=== PATIENT | male | born 1950 | race Caucasian/White ===

== ENCOUNTER 2018-07-03 16:56 | Observation (INO) | payer OTHER ==
[2018-07-03 22:05] LABS: ADD MAN DIFF? NO
[2018-07-03 22:09] LABS: BASOPHILS % 0.6 % (0.0-2.0); EOSINOPHILS # 0.2 10^3/ul (0.0-0.5); HEMATOCRIT 37.4 % (42.0-52.0); HEMOGLOBIN 12.3 g/dl (14.0-18.0); LYMPHOCYTES % 20.1 % (15.0-51.0); MEAN CORPUSCULAR HEMOGLOBIN 30.4 pg (29.0-33.0); MEAN CORPUSCULAR HGB CONC 32.9 g/dl (32.0-37.0); MEAN CORPUSCULAR VOLUME 92.3 fl (82.0-101.0); MEAN PLATELET VOLUME 9.6 fl (7.4-10.4); MONOCYTE # 0.4 10^3/ul (0.3-0.9); MONOCYTES % 7.2 % (0.0-11.0); NEUTROPHIL # 3.4 10^3/ul (1.6-7.5); NEUTROPHILS % 67.9 % (39.0-77.0); PLATELET COUNT 179 10^3/UL (140-415); RED BLOOD COUNT 4.05 10^6/ul (4.70-6.10); RED CELL DISTRIBUTION WIDTH 13.6 % (11.5-14.5)
[2018-07-03 22:28] LABS: ALANINE AMINOTRANSFERASE 34 IU/L (13-69); ALBUMIN 3.7 g/dl (3.3-4.9); ALBUMIN/GLOBULIN RATIO 0.88; ALKALINE PHOSPHATASE 93 IU/L (42-121); ANION GAP 10 (5-13); ASPARTATE AMINO TRANSFERASE 42 IU/L (15-46); BILIRUBIN,INDIRECT 0.5 mg/dl (0-1.1); BILIRUBIN,TOTAL 0.5 mg/dl (0.2-1.3); BLOOD UREA NITROGEN 18 mg/dl (7-20); CALCIUM 9.3 mg/dl (8.4-10.2); CARBON DIOXIDE 28 mmol/L (21-31); CHLORIDE 101 mmol/L (97-110); CREATININE 0.47 mg/dl (0.61-1.24); Estimated GFR > 60 mL/min (>60); GLUCOSE 112 mg/dl (70-220); POTASSIUM 4.2 mmol/L (3.5-5.1); SODIUM 139 mmol/L (135-144); TOTAL PROTEIN 7.9 g/dl (6.1-8.1)
[2018-07-03] MEDS ORDERED: ACETAMINOPHEN 325 MG TAB PO (23:00)
[2018-07-03] MEDS ORDERED: ONDANSETRON 4 MG INJ IV (23:00)
[2018-07-03] MEDS ORDERED: VANCOMYCIN IV PER PHARMACY XX (23:30)
[2018-07-03] MEDS ORDERED: GLUCAGON 1 MG INJ IM (23:45)
[2018-07-03] MEDS ORDERED: DEXTROSE 50% 50 ML SYRINGE IV ×2 (23:45)
[2018-07-03] MEDS ORDERED: GLUCOSE GEL 15 GRAM TUBE PO ×2 (23:45)
[2018-07-03] MEDS ORDERED: GLUCOSE GEL 15 GRAM TUBE BUCCAL (23:45)
[2018-07-04] MEDS ORDERED: PENDING SANTYL ORDER FOR WOUND CARE XX
[2018-07-04] MEDS: PIPER-TAZO 3.375 GM IV (PMX) 100 ML IVPB ×3 (00:37→15:14)
[2018-07-04] MEDS: VANCOMYCIN 1 GM (PMX) 250 ML IVPB (01:16)
[2018-07-04] MEDS: VANCOMYCIN 1 GM 250 ML IVPB (06:31)
[2018-07-04] MEDS: INSULIN ASPART [NOVOLOG] 3 ML PEN SC ×3 (08:00→18:10)
[2018-07-04] MEDS ORDERED: DEXTROSE 5%-0.45% NACL 1,000 ML IV (08:30)
[2018-07-04] MEDS: LIDOCAINE 1% (MPF) 5 ML VIAL SC ×2 (12:30)
[2018-07-04] MEDS ORDERED: VANCOMYCIN HCL 1.5 GM in SOD CHLORIDE 0.9% 250 ML IVPB (20:00)
[2018-07-06] MEDS ORDERED: INFLUENZA VIRUS VACCINE 0.5 ML (DISPENSING) IM* (10:00)
== END 2018-07-04 18:25 | disposition home or self-care (01) ==
LOC: E/R 16:56 → 2NE 22:38
DX: M86.672 Other chronic osteomyelitis, left ankle and foot (principal); L03.032 Cellulitis of left toe; E11.9 Type 2 diabetes mellitus without complications; I10 Essential (primary) hypertension; E78.5 Hyperlipidemia, unspecified; Z87.891 Personal history of nicotine dependence; Z95.810 Presence of automatic (implantable) cardiac defibrillator; Z86.73 Personal history of transient ischemic attack (TIA), and cerebral infarction without residual deficits; Z79.82 Long term (current) use of aspirin; Z79.84 Long term (current) use of oral hypoglycemic drugs
CPT/HCPCS: 36415; 36569; 71045; 73630-LT; 76937; 80053; 82962; 85025; 87040; 87081; 93005; 99217; 99285-25